=== PATIENT | male | born 1935 | race Caucasian/White ===

== ENCOUNTER 2018-01-06 16:09 | Emergency (ER) | payer BC ==
[2018-01-06 16:19] VITALS: BP 171/85
--- NOTE | 2018-01-06 18:43 | EDPHY ---
H & P Time Seen by Provider: 01/06/18 16:57 HPI/ROS: CHIEF COMPLAINT: Head injury, forehead lacerations HISTORY OF PRESENT ILLNESS: 82-year-old male presents to the emergency department by private vehicle with his with closed head injury. The patient was out in the yard and tripped over something and then fell and hit his forehead on the gas meter. He did not lose consciousness. The incident happened just prior to arrival. He sustained forehead lacerations. He denies neck pain. Denies chest pain or difficulty breathing. Denies abdominal pain. Denies injury to his upper lower extremities. REVIEW OF SYSTEMS: Constitutional: No fever, no chills. Eyes: No double or blurry vision. ENT: No sore throat. Respiratory: No cough, no shortness of breath. Cardiac: No chest pain. Gastrointestinal: No abdominal pain, vomiting or diarrhea. Genitourinary: No dysuria. Musculoskeletal: No neck or back pain. Skin: Forhead lacerations. No rashes. Neurological: No headache. Past Medical/Surgical History: Hyperlipidemia, GERD Social History: and lives independently with his Smoking Status: Never smoked Physical Exam: General Appearance: Alert, no distress. Mentating normally and answering questions appropriately. Eyes: Pupils equal and round. Extraocular motions are all intact. ENT: Mouth: Mucous membranes moist. Respiratory: No wheezing, rhonchi, or rales, lungs are clear to auscultation. Cardiovascular: Regular rate and rhythm. Gastrointestinal: Abdomen is soft and nontender, no masses, no rebound or guarding, bowel sounds normal. Neurological: Alert and oriented x 3, cranial nerves II through XII grossly intact Skin: The patient has an irregular 2 cm laceration to the central aspect of his forehead. He also has another 2 cm laceration just to the right lateral aspect of the forehead. Warm and dry, no rashes. Musculoskeletal: Nontender to palpate along the cervical, thoracic or lumbar spine. Neck is supple. Extremities: Full range of motion and no peripheral edema. Psychiatric: Patient is oriented X 3, there is no agitation. Constitutional: Initial Vital Signs Temperature (C) 37.0 C 01/06/18 16:17 Heart Rate 70 01/06/18 16:17 Respiratory Rate 18 01/06/18 16:17 Blood Pressure 171/85 H 01/06/18 16:17 O2 Sat (%) 97 01/06/18 16:17 O2 Delivery Mode Room Air Allergies/Adverse Reactions: neomycin [Neomycin] Allergy (Verified 01/06/18 16:12) Itching Home Medications: Medication Instructions Recorded Aspirin [Aspirin 81mg (OTC)] 81 mg PO DAILY 06/26/13 Cholecalciferol Vit D3 [Vitamin D3 2,000 units PO DAILY 06/26/13 2000 units (OTC)] Omeprazole [Prilosec 20 mg] 20 mg PO DAILY 06/26/13 Silodosin [Rapaflo] 8 mg PO DAILY 06/26/13 Simvastatin [Zocor 20 mg (RX)] 20 mg PO DAILY18 06/26/13 Medical Decision Making - Diagnostics Imaging Results: Imaging Impressions Head CT 01/06/18 17:09 Impression: 1. Forehead laceration with hematoma. 2. Negative brain. Discussed with Ankita Paniagua at 5:26 PM General information for patients regarding this examination can be found at [email or web address]. If you have questions or comments about this report, please contact me at (hospital) or [phone] (cell). Imaging: Discussed imaging studies w/ physically impaired teacher Radiologist, I viewed and interpreted images myself Procedures: Laceration repair #1. Verbal consent was obtained from the patient. The 2 cm laceration on the central forehead was anesthetized using 1% lidocaine with epinephrine. The wound was irrigated with saline, draped and explored to its base with a gloved finger. There were no deep structures involved. The wound was repaired with 6 0 Prolene, 6 sutures. The wound repair was simple. The procedure was performed by myself. Laceration repair #2. Verbal consent was obtained from the patient. The 2 cm irregular laceration on the central forehead was anesthetized using 1% lidocaine with epinephrine. The wound was irrigated with saline, draped and explored to its base with a gloved finger. There were no deep structures involved. The wound was repaired with 6 0 Prolene, 7 sutures. The wound repair was simple. The procedure was performed by myself. ED Course/Re-evaluation: 82-year-old male presents to the emergency department after mechanical fall. The patient has CT scan of his brain which revealed no fractures or intracranial bleeding. The lacerations were repaired. Patient was given closed-head injury precautions. He was able to ambulate had no complaints upon discharge. Differential Diagnosis: Head injury including but not limited to concussion, skull fracture, intraparenchymal contusion, subarachnoid, subdural and epidural hematoma. Departure - Departure Disposition: Home, Routine, Self-Care Clinical Impression: Head injury Qualifiers: Encounter type: initial encounter Qualified Code(s): S09.90XA - Unspecified injury of head, initial encounter Face lacerations Qualifiers: Encounter type: initial encounter Qualified Code(s): S01.81XA - Laceration without foreign body of other part of head, initial encounter Condition: Good Instructions: Care For Your Stitches (ED), Laceration (ED), Head Injury (ED), Acute Wounds (ED) Additional Instructions: Wound Care Follow-Up: Removal of sutures in 5-7 days. Suture removal is complimentary in uncomplicated cases. Infection or abnormal findings would require reevaluation by the MD. In that case, you may be billed. Return to the emergency department if you developed headache, vomiting, altered mental status, or if you feel worse in any way. Referrals: Mona Tapia MD [Primary Care Provider] - As per Instructions
== END 2018-01-06 18:55 | disposition home or self-care (01) ==
PROC: 0HQ1XZZ Repair Face Skin, External Approach (ICD-10-PCS; principal; 2018-01-06)
DX: S01.81XA Laceration without foreign body of other part of head, initial encounter (principal); Z79.82 Long term (current) use of aspirin; W01.198A Fall on same level from slipping, tripping and stumbling with subsequent striking against other object, initial encounter; Y92.007 Garden or yard of unspecified non-institutional (private) residence as the place of occurrence of the external cause

== ENCOUNTER 2018-01-08 13:01 | Emergency (ER) | payer BC ==
[2018-01-08 13:09] VITALS: BP 148/64
--- NOTE | 2018-01-08 13:25 | EDPHY ---
HPI/HX/ROS/PE/MDM Narrative: CHIEF COMPLAINT: Bruising on the face HISTORY OF PRESENT ILLNESS: 82-year-old male who was seen in the emergency department on Saturday. At that time the patient tripped over a lawn edge and fell, striking the gas meter with his head. No LOC. Patient's evaluation emergency department did include a head CT which was unremarkable, demonstrating no signs of facial fractures. Patient has reported no neck pain, no numbness or tingling or paresthesias in the arms or legs. No visual disturbances including diplopia. No epistaxis, chest pain, shortness of breath. Patient takes baby aspirin daily but is on no other anticoagulants. He has no headache and no facial pain. He is mostly concerned regarding the bruising. Of note he has not removed his bandage or provided wound care for his lacerations yet. REVIEW OF SYSTEMS: Aside from elements discussed in the HPI, a comprehensive 10-point review of systems was reviewed and is negative. PAST MEDICAL HISTORY: High cholesterol. SOCIAL HISTORY: . at bedside. VITAL SIGNS: Reviewed by me GENERAL: Pleasant, conversant, well-developed,well-nourished, resting comfortably in no respiratory distress. HEENT: Sutured vertical laceration in the center of the forehead with abrasions to the left side. Small suture laceration over the nasal bridge. Edema and ecchymosis of the right and left eyelid, right greater than left. Ecchymosis and edema under the right eye. Small amount ecchymosis under the left eye. Pupils are small but equal round reactive to light. Extraocular movements intact. No nystagmus. Normal bite. No intraoral trauma. No tenderness to the neck. Supple. NEURO: Alert and oriented, grossly nonfocal. PSYCHIATRIC: Normal mentation, no agitation. Portions of this note were transcribed by a administrative medical director. I personally performed a history, physical exam, medical decision making, and confirmed accuracy of information the transcribed note. ED Course: I discussed with the patient my belief that the bruising that he is seeing is now dependent hematomas in ecchymosis developing following his head injury. Review of the patient's records demonstrates a normal head CT from several days ago and no comment with respect to facial trauma. Patient has no bony tenderness underneath the ecchymosis. Please see the discharge instructions. MDM: Differential diagnoses for the patient's symptom complex was considered including but not limited to dependent hematoma, over-anticoagulated, infected lacerations, wound infection. General Time Seen by Provider: 01/08/18 13:20 Initial Vital Signs: Initial Vital Signs Temperature (C) 36.4 C 01/08/18 13:05 Heart Rate 66 01/08/18 13:05 Respiratory Rate 18 01/08/18 13:05 Blood Pressure 148/64 H 01/08/18 13:05 O2 Sat (%) 92 01/08/18 13:05 O2 Delivery Mode Room Air Allergies/Adverse Reactions: neomycin [Neomycin] Allergy (Verified 01/08/18 13:05) Itching Home Medications: Medication Instructions Recorded Aspirin [Aspirin 81mg (OTC)] 81 mg PO DAILY 06/26/13 Cholecalciferol Vit D3 [Vitamin D3 2,000 units PO DAILY 06/26/13 2000 units (OTC)] Omeprazole [Prilosec 20 mg] 20 mg PO DAILY 06/26/13 Silodosin [Rapaflo] 8 mg PO DAILY 06/26/13 Simvastatin [Zocor 20 mg (RX)] 20 mg PO DAILY18 06/26/13 Departure - Departure Disposition: Home, Routine, Self-Care Clinical Impression: Face lacerations Qualifiers: Encounter type: subsequent encounter Qualified Code(s): S01.81XD - Laceration without foreign body of other part of head, subsequent encounter Facial contusion Qualifiers: Encounter type: initial encounter Qualified Code(s): S00.83XA - Contusion of other part of head, initial encounter Condition: Good Instructions: Facial Contusion (ED), Facial Laceration (ED) Additional Instructions: 1. Apply ice to the areas of bruising. 2. Clean your forehead lacerations as directed. Return for suture removal as directed previously (5-7 days after they were placed). Keep wound clean and dry. Clean suture line with a mixture of hydrogen peroxide and water. Apply a thin layer of antibiotic cream. Dress wound if desired. Watch for signs of infection. No soaking wound in water. Showers are ok. No swimming until sutures are removed. 3. Take Tylenol 650mg every 4-6 hours as needed for pain. Do not take additional ibuprofen or aspirin. 4. Return to the emergency department for increasing redness, swelling, or discharge from the wound or if you develop fever, severe headache, dizziness, vomiting, vision changes, confusion, or other concerns. Referrals: Mona Tapia MD [Primary Care Provider] - As per Instructions Report Scribed for: Ana Maria De Leon Report Scribed by: Edita Canas Date of Report: 01/08/18 Time of Report: 13:55
== END 2018-01-08 13:57 | disposition home or self-care (01) ==
DX: S01.81XD Laceration without foreign body of other part of head, subsequent encounter (principal); Z79.82 Long term (current) use of aspirin; W01.198D Fall on same level from slipping, tripping and stumbling with subsequent striking against other object, subsequent encounter